=== PATIENT | female | born 2000 | race Caucasian/White ===

== ENCOUNTER 2024-09-08 12:19 | Emergency (ER) | payer OTHER, SELFPAY ==
[2024-09-08 12:33] VITALS: BP 142/77; PULSE 81; RESP 20; TEMP 36.2; O2SAT 100; BMI 26.6
[2024-09-08 12:58] LABS: Add Manual Diff / Slide Review NO; Basophils Absolute Auto 0 /uL (0-100); Basophils Percent Auto 0.4 % (0-2); Eosinophils Absolute Auto 100 /uL (0-450); Eosinophils Percent Auto 0.9 % (2-4); Hematocrit 41.4 % (36-46); Hemoglobin 14.1 g/dL (12.0-16.0); Lymphocytes Absolute Auto 2000 /uL (1100-4500); Lymphocytes Percent Auto 22.1 % (25-40); Mean Corpuscular HGB Conc 34.2 % (30-36); Mean Corpuscular Hemoglobin 31.5 PG (26-34); Mean Corpuscular Volume 92.1 fL (80-100); Monocytes Absolute Auto 500 /uL (0-900); Monocytes Percent Auto 5.2 % (3-14); Neutrophils Absolute Auto 6400 /uL (1500-7000); Neutrophils Percent Auto 71.4 % (50-75); Platelet Count 280 X10^3/uL (150-400); Red Blood Cell Count 4.49 X10^6/uL (4.0-5.2); Red Cell Distribution Width 12.7 % (11.6-14.8)
[2024-09-08 13:16] LABS: Alanine Aminotransferase 25 IU/L (<35); Albumin Globulin Ratio 1.6 (1.0-2.8); Alkaline Phosphatase 59 U/L (38-126); Aspartate Aminotransferase 29 IU/L (14-36); BUN Creatinine Ratio 15.3 (6-22); Bilirubin Total 0.4 mg/dL (0.2-1.3); Blood Urea Nitrogen 13 mg/dL (7-17); Calcium 9.8 mg/dL (8.4-10.2); Carbon Dioxide 23 mmol/L (22-32); Chloride 105 mmol/L (98-107); Estimated Glomerular Filt Rate > 60 mL/min (>60); Globulin 3.1 g/dL (1.7-4.1); Glucose 89 mg/dL (70-100); HEMOLYSIS < 15 (0-50); Lipase 58 U/L (23-300); Potassium 3.7 mmol/L (3.4-5.1); Sodium 138 mmol/L (137-145); Total Protein 8.1 g/dL (6.3-8.2)
--- NOTE | 2024-09-08 13:17 | ED_ITS ---
HPI - Abdominal Pain <Justyn Santamaria PA-C - Last Filed: 09/08/24 16:40> General Chief Complaint: Abdominal Pain Stated Complaint: abd px Time Seen by Provider: 09/08/24 12:36 Source: patient Mode of arrival: Wheelchair History of Present Illness HPI narrative: 24-year-old female with no reported past medical history presents to the ED with 1 day of right lower quadrant pain. Patient states that her pain started about 2 hours ago very suddenly, describes the pain as sharp and is in the suprapubic as right lower quadrant. Patient states that 15 minutes after the pain started, she had intense nausea and vomiting. Patient denies fever, chills, chest pain, shortness of breath, dysuria, lightheadedness, dizziness, syncope. No prior abdominal surgeries. Patient has an IUD in, therefore does not have regular periods. Last bowel movement was this morning. Denies diarrhea, hematochezia melena. Related Data Previous Rx's Medication Instructions Recorded oxycodone-acetaminophen 5 mg-325 1 tab PO Q6H PRN pain 3 days #12 09/08/24 mg tablet (Endocet) tabs Review of Systems <Justyn Santamaria PA-C - Last Filed: 09/08/24 16:40> Constitutional Constitutional: Denies chills, Denies fatigue, Denies fever(s), Denies frequent falls, Denies lethargy and Denies weakness Eyes Eyes: Denies change in vision, Denies eye discharge, Denies irritation and Denies loss of vision ENT Ears, Nose, Mouth, and Throat: Denies change in voice, Denies dizziness, Denies neck pain, Denies sore throat and Denies throat swelling Cardiovascular Cardiovascular: Denies chest pain, Denies irregular heart rhythm, Denies lightheadedness, Denies palpitations, Denies dyspnea, Denies dyspnea on exertion and Denies orthopnea Respiratory Respiratory: Denies cough, Denies dyspnea, Denies dyspnea on exertion and Denies wheezing Gastrointestinal Gastrointestinal: Reports abdominal pain, Denies change in bowel habits, Denies diarrhea, Reports nausea and Reports vomiting Musculoskeletal Musculoskeletal: Denies neck pain and Denies numbness Integumentary/Breasts Skin/Breast: Denies pruritus, Denies erythema, Denies rash and Denies wounds Neurologic Neurologic: Denies behavioral changes, Denies confusion, Denies dizziness, Denies frequent falls, Denies loss of vision, Denies numbness and Denies weakness Psychiatric Psychiatric: Denies anxiety, Denies behavioral changes, Denies confusion, Denies depression, Denies homicidal ideation and Denies suicidal ideation Endocrine Endocrine: Denies fatigue, Denies flushing and Denies palpitations Hematologic/Lymphatic Hematologic/Lymphatic: Denies easy bruising Allergic/Immunologic Allergic/Immunologic: Denies urticaria, Denies throat swelling and Denies wheezing Patient History <Justyn Santamaria PA-C - Last Filed: 09/08/24 16:40> Social History Smoking Status: Never smoker Smoking Status: Never smoker Exam <Justyn Santamaria PA-C - Last Filed: 09/08/24 16:40> Narrative Exam Narrative: Const General:?cooperative, healthy appearing and comfortable [facility] Head:?normal to inspection Ears:?hearing grossly normal bilaterally Nose:?external nose normal Face and sinus:?normal facial exam and sinuses nontender Mouth:?oral mucosae normal Throat:?posterior oropharynx normal Eyes General:?appearance normal, both eyes and all related structures Neck Neck:?normal visual inspection and no lymphadenopathy noted Resp Effort & Inspection:?normal respiratory effort Auscultation:?clear to auscultation bilaterally Cardio Rate:?regular rate Rhythm:?regular rhythm GI Abdomen is soft, nondistended, significant tender to palpation in the right lower quadrant. Mild tenderness to and in the suprapubic region. Neuro General:?patient alert, patient awake and patient oriented x3 Initial Vital Signs Initial Vital Signs: Vital Signs Temperature 97.1 F L 09/08/24 12:33 Pulse Rate 81 09/08/24 12:33 Respiratory Rate 20 09/08/24 12:33 Blood Pressure 142/77 H 09/08/24 12:33 Pulse Oximetry 100 09/08/24 12:33 Oxygen Delivery Method Room Air 09/08/24 12:33 <Ernesto Rowan MD - Last Filed: 09/09/24 07:30> Initial Vital Signs Initial Vital Signs: Vital Signs Temperature 97.1 F L 09/08/24 12:33 Pulse Rate 81 09/08/24 12:33 Respiratory Rate 20 09/08/24 12:33 Blood Pressure 142/77 H 09/08/24 12:33 Pulse Oximetry 100 09/08/24 12:33 Oxygen Delivery Method Room Air 09/08/24 12:33 Course <Justyn Santamaria PA-C - Last Filed: 09/08/24 16:40> Orders Ordered: Discontinued Medications Morphine Sulfate (Morphine 4 Mg/Ml Inj) 4 mg IV NOW ONE Stop: 09/08/24 13:17 Last Admin: 09/08/24 13:23 Dose: 4 mg Documented By: ABDIAS Ondansetron HCl (Ondansetron 4 Mg/2 Ml Inj) 4 mg IV NOW PRN PRN Reason: Nausea And Vomiting Last Admin: 09/08/24 13:23 Dose: 4 mg Documented By: ABDIAS Ondansetron HCl (Ondansetron 4 Mg Odt) 4 mg PO NOW PRN PRN Reason: Nausea And Vomiting Vital Signs Vital signs: Vital Signs - 8 hr 09/08/24 12:33 Temperature 97.1 F L Pulse Rate 81 Respiratory Rate 20 Blood Pressure 142/77 H Pulse Oximetry 100 Oxygen Delivery Method Room Air <Ernesto Rowan MD - Last Filed: 09/09/24 07:30> Orders Ordered: Discontinued Medications Morphine Sulfate (Morphine 4 Mg/Ml Inj) 4 mg IV NOW ONE Stop: 09/08/24 13:17 Last Admin: 09/08/24 13:23 Dose: 4 mg Documented By: ABDIAS Ondansetron HCl (Ondansetron 4 Mg/2 Ml Inj) 4 mg IV NOW PRN PRN Reason: Nausea And Vomiting Last Admin: 09/08/24 13:23 Dose: 4 mg Documented By: ABDIAS Ondansetron HCl (Ondansetron 4 Mg Odt) 4 mg PO NOW PRN PRN Reason: Nausea And Vomiting Vital Signs Vital signs: Vital Signs - 8 hr 09/08/24 12:33 Temperature 97.1 F L Pulse Rate 81 Respiratory Rate 20 Blood Pressure 142/77 H Pulse Oximetry 100 Oxygen Delivery Method Room Air MDM - Abdominal Pain <Justyn Santamaria PA-C - Last Filed: 09/08/24 16:40> Lab Data 09/08/24 12:46 09/08/24 12:46 Labs: Lab Results 09/08/24 Range/Units 12:46 WBC 9.0 (4.5-11.0) X10^3/uL RBC 4.49 (4.0-5.2) X10^6/uL Hgb 14.1 (12.0-16.0) g/dL Hct 41.4 (36-46) % MCV 92.1 (80-100) fL MCH 31.5 (26-34) PG MCHC 34.2 (30-36) % RDW 12.7 (11.6-14.8) % Plt Count 280 (150-400) X10^3/uL Neut % (Auto) 71.4 (50-75) % Lymph % (Auto) 22.1 L (25-40) % [place] % (Auto) 5.2 (3-14) % Eos % (Auto) 0.9 L (2-4) % Baso % (Auto) 0.4 (0-2) % Neut # (Auto) 6400 (4861-2821) /uL Lymph # (Auto) 2000 (6920-5712) /uL [place] # (Auto) 500 (0-900) /uL Eos # (Auto) 100 (0-450) /uL Baso # (Auto) 0 (0-100) /uL Sodium 138 (137-145) mmol/L Potassium 3.7 (3.4-5.1) mmol/L Chloride 105 (98-107) mmol/L Carbon Dioxide 23 (22-32) mmol/L BUN 13 (7-17) mg/dL Creatinine 0.85 (0.52-1.04) mg/dL Estimated GFR > 60 (>60) mL/min BUN/Creatinine Ratio 15.3 (6-22) Glucose 89 (70-100) mg/dL Calcium 9.8 (8.4-10.2) mg/dL Total Bilirubin 0.4 (0.2-1.3) mg/dL AST 29 (14-36) IU/L ALT 25 (<35) IU/L Alkaline Phosphatase 59 (38-126) U/L Total Protein 8.1 (6.3-8.2) g/dL Albumin 5.0 (3.5-5.0) g/dL Globulin 3.1 (1.7-4.1) g/dL Albumin/Globulin Ratio 1.6 (1.0-2.8) Lipase 58 (23-300) U/L Point of care testing: Point of Care Testing Test Results Negative Urine Dip Bedside Urine Glucose Negative Bedside Urine Bilirubin - Negative Bedside Urine Ketone - Negative Urine Specific [place] 1.015 Bedside Urine Occult Blood - Negative Bedside Urine pH 6 Bedside Urine Protein - Negative Bedside Urine Urobilinogen - Negative Bedside Urine Nitrite - Negative Bedside Urine Leukocytes - Negative Esterase MDM Narrative Medical decision making narrative: 24-year-old female with no reported past medical history presents to the ED with 1 day of right lower quadrant pain. Concern for appendicitis versus kidney stones versus ruptured ovarian cyst versus ovarian torsion ectopic versus versus other intra-abdominal pathology versus other. Will obtain CT abdomen pelvis, UA, urine hCG, labs, lactate, lipase. Will give morphine for pain control, since patient took ibuprofen only about 2 hours ago. Patient currently states that she is not nauseous. Patient's pain improved with the morphine. CT scan shows normal appendix. There is what appears to be a partially collapsed right ovarian cystic structure measuring 4.1 cm in diameter with associated [id number] pelvic fluid. No other abnormalities. Pelvic ultrasound was obtained to rule out ovarian torsion. Ultrasound shows arterial and venous flow intact to the right ovary. There is a collapsing right ovarian hemorrhagic cyst measuring 3.1 cm. Free fluid versus blood product is seen within the posterior cul de sac. Discussed findings with patient. Prescribed pain medications. Discussed the risk of continued bleeding and to monitor for symptoms and return to the ED if her symptoms worsen. ED return precautions discussed in detail with patient. She verbalized understanding. Also recommend follow-up with PCP and correctional substance abuse counselor for further evaluation. Medical records reviewed: Yes <Ernesto Rowan MD - Last Filed: 09/09/24 07:30> Lab Data Labs: Lab Results 09/08/24 Range/Units 12:46 WBC 9.0 (4.5-11.0) X10^3/uL RBC 4.49 (4.0-5.2) X10^6/uL Hgb 14.1 (12.0-16.0) g/dL Hct 41.4 (36-46) % MCV 92.1 (80-100) fL MCH 31.5 (26-34) PG MCHC 34.2 (30-36) % RDW 12.7 (11.6-14.8) % Plt Count 280 (150-400) X10^3/uL Neut % (Auto) 71.4 (50-75) % Lymph % (Auto) 22.1 L (25-40) % [place] % (Auto) 5.2 (3-14) % Eos % (Auto) 0.9 L (2-4) % Baso % (Auto) 0.4 (0-2) % Neut # (Auto) 6400 (9124-9775) /uL Lymph # (Auto) 2000 (8423-8316) /uL [place] # (Auto) 500 (0-900) /uL Eos # (Auto) 100 (0-450) /uL Baso # (Auto) 0 (0-100) /uL Sodium 138 (137-145) mmol/L Potassium 3.7 (3.4-5.1) mmol/L Chloride 105 (98-107) mmol/L Carbon Dioxide 23 (22-32) mmol/L BUN 13 (7-17) mg/dL Creatinine 0.85 (0.52-1.04) mg/dL Estimated GFR > 60 (>60) mL/min BUN/Creatinine Ratio 15.3 (6-22) Glucose 89 (70-100) mg/dL Calcium 9.8 (8.4-10.2) mg/dL Total Bilirubin 0.4 (0.2-1.3) mg/dL AST 29 (14-36) IU/L ALT 25 (<35) IU/L Alkaline Phosphatase 59 (38-126) U/L Total Protein 8.1 (6.3-8.2) g/dL Albumin 5.0 (3.5-5.0) g/dL Globulin 3.1 (1.7-4.1) g/dL Albumin/Globulin Ratio 1.6 (1.0-2.8) Lipase 58 (23-300) U/L Point of care testing: Point of Care Testing Test Results Negative Urine Dip Bedside Urine Glucose Negative Bedside Urine Bilirubin - Negative Bedside Urine Ketone - Negative Urine Specific [place] 1.015 Bedside Urine Occult Blood - Negative Bedside Urine pH 6 Bedside Urine Protein - Negative Bedside Urine Urobilinogen - Negative Bedside Urine Nitrite - Negative Bedside Urine Leukocytes - Negative Esterase Discharge Plan Departure Patient Disposition: Home Clinical Impression: Rupture of cyst of right ovary Instructions: DI for Ovarian Cyst Activity Restrictions/Additional Instructions: You were evaluated in the ED today for right abdominal pain. Your CT scan shows a normal appendix. The CT scan and ultrasound did show a ruptured right-sided ovarian cyst which is causing your symptoms. Your symptoms improved with the medication in the ED. This condition is usually just managed with pain medication until it heals by itself. There is a small chance that you may have continued bleeding, so please continue to monitor for worsening pain, shortness of breath, lightheadedness. Return to the ED if you have any worsening symptoms. Please follow-up with your primary care provider and correctional substance abuse counselor for further evaluation. Prescriptions: New oxycodone-acetaminophen [Endocet] 5-325 mg tablet 1 tab PO Q6H PRN (Reason: pain) 3 Days Qty: 12 0RF Referrals: Miscellaneous,[facility] [Primary Care Provider] - Stand Alone Forms: Patient Portal/API/Survey ED Sign-out <Ernesto Rowan MD - Last Filed: 09/09/24 07:30> Cosign ED Attending Elsi Attestation: I was immediately available in the department for consultation. ?This documentation has been reviewed and I agree with assessment and plan. Supervised by Ernesto Rowan MD
[2024-09-08] MEDS: ONDANSETRON 4 MG/2 ML INJ IV (13:23)
[2024-09-08] MEDS: MORPHINE 4 MG/ML INJ IV (13:23)
--- NOTE | 2024-09-08 13:41 | DI.CT.S_ITS ---
PROCEDURE: CT ABDOMEN PELVIS W CON INDICATIONS: RLQ pain TECHNIQUE: After the administration of intravenous contrast, axial sections acquired from the lung bases to the pubic symphysis. Coronal and sagittal reformats were performed. For radiation dose reduction, the following was used: automated exposure control, adjustment of mA and/or kV according to patient size. COMPARISON: None. FINDINGS: Image quality: Diagnostic. Lower Chest: No significant findings. ABDOMEN: Liver: No solid mass. Gallbladder: No radiopaque gallstones or wall thickening. Biliary ducts: No biliary dilation. Pancreas: No ductal dilation. Spleen: Size is within normal limits. Adrenal Glands: No adrenal nodules. Kidneys and Ureters: No hydronephrosis. No solid mass. No complex renal cystic lesion which requires follow up. Stomach and Bowel: Normal colonic caliber, without significant wall thickening. Normal appendix. Peritoneum: No abnormal intraperitoneal fluid. No free air. Ventral Wall: No significant ventral hernia. Abdominal Nodes: No retroperitoneal or mesenteric adenopathy by size criteria. Vessels: Aorta and inferior vena cava are normal in size. PELVIS: Pelvic Organs: There is [id number] pelvic ascites, greater than physiologic. An IUD is present in the uterus. There is what appears to be a partially collapsed large right ovarian cystic structure. It measures 3.7 x 4.1 cm on axial image 124 of series 2. Bladder: No bladder wall thickening, accounting for underdistention. Pelvic Nodes: No enlarged lymph nodes. Miscellaneous: No inguinal hernias are seen. Bones: No aggressive osseous abnormality. IMPRESSION: 1. There is a normal appendix. 2. There is what appears to be a partially collapsed left ovarian cystic structure measuring 4.1 cm in diameter with associated mild to moderate pelvic fluid. 3. IUD. Comment: If suspect ovarian torsion, consider pelvic ultrasound with duplex evaluation. Dictated by: Tani Justice M.D. on 09/08/2024 at 13:53 Approved by: Tani Justice M.D. on 09/08/2024 at 13:56
--- NOTE | 2024-09-08 14:07 | DI.US.S_ITS ---
PROCEDURE: US PELVIC COMPLETE INDICATIONS: ?ovarian cyst?torsion TECHNIQUE: Real-time scanning was performed of the pelvic organs, with image documentation. Additional endovaginal scanning was necessary due to incomplete visualization of the adnexal and endometrial structures by transabdominal scanning. COMPARISON: [facility], CT, CT ABDOMEN PELVIS W CON, 09/08/2024, 13:43. FINDINGS: Uterus: Uterus is anteverted and normal in size at 8.0 x 3.8 x 4.4 cm. The myometrium is homogeneous. The endometrium measures 7.5 mm combined thickness. Intrauterine device within the body of the endometrium. Ovaries: The right ovary measures 4.6 x 4.5 x 4.2 cm, with a calculated ovarian volume of 45.2 cc. Collapsing hemorrhagic cyst measuring 3.1 x 1.4 x 2.8 centimeters. The left ovary measures 2.4 x 1.9 x 3.6 cm, with a calculated ovarian volume of 8.9 cc. Less than 12 follicles can be seen in each ovary. No adnexal masses are seen. Other: Small free fluid/blood is seen in the posterior cul-de-sac. IMPRESSION: Collapsing right ovarian hemorrhagic cyst measuring 3.1 centimeters. Arterial and venous flow is seen to the right ovary. Free fluid versus blood product is seen within the posterior cul-de-sac. Left ovary is normal in appearance. Uterus and endometrium are normal in appearance with intrauterine device in place. We strive to produce accurate, complete, and clear reports of imaging services. To assist us in improving patient care, this report was composed using standard report templates and voice recognition software. Therefore, it may contain abnormal punctuation, insertions and/or omissions. Occasional wrong-word or sound-alike substitutions may occur. Though we review the report and make efforts to correct it, we do recommend that the report be read carefully in proper context to recognize any text inaccuracies. Dictated by: Jimmy Lopez M.D. on 09/08/2024 at 15:54 Approved by: Jimmy Lopez M.D. on 09/08/2024 at 16:12
[2024-09-08 16:38] VITALS: BP 134/76; PULSE 75; RESP 20; TEMP 37; O2SAT 100
== END 2024-09-08 16:39 | disposition home or self-care (01) ==
PROVIDERS: Emergency Provider Student in an Organized Health Care Education/Training Program
DX: N83.201 Unspecified ovarian cyst, right side (principal); R11.2 Nausea with vomiting, unspecified
CPT/HCPCS: 36415; 74177; 76830; 76856; 80053; 81003; 81025; 83690; 85025; 93976; 96374; 96375; 99284; J2270; J2405; Q9967